=== PATIENT | male | born 1960 | race Two or more races ===

== ENCOUNTER 2019-12-11 11:38 | Day surgery (SDC) | payer OTHER ==
[2019-12-04 13:54] VITALS: BMI 29.0
[2019-12-11] MEDS ORDERED: CEFAZOLIN 2 GM in DEXTROSE 5%-WATER - 50 ML IVPB ONE (13:30)
[2019-12-11] MEDS ORDERED: VANCOMYCIN 1,000 MG in DEXTROSE 5%-WATER - 250 ML IVPB ONE (13:30)
[2019-12-11] MEDS ORDERED: PROPOFOL 20 ML ONE ×2 (13:55→14:46)
[2019-12-11] MEDS ORDERED: MIDAZOLAM HCL 2 MG/2 ML SINGLE DOSE VIAL ONE (13:55)
[2019-12-11] MEDS ORDERED: SUCCINYLCHOLINE CHLORIDE 200 MG/10 ML SYRINGE ONE (14:08)
[2019-12-11] MEDS ORDERED: ePHEDrine SULFATE 50 MG/1 ML AMPULE ONE (14:58)
--- NOTE | 2019-12-11 15:12 | OP ---
Operative Note - Note: Operative Date: 12/11/19 Pre-Operative Diagnosis: Right elbow bony hump, chronic pain Operation: Right elbow exostectomy (posterior) Post-Operative Diagnosis: Same as Pre-op Surgeon: Vlad Menezes Complaint Evaluation Officer: Francisco Potts Anesthesiologist/WOOL HAT FORMING MACHINE TENDER: Arturo Mckeon Anesthesia: General Estimated Blood Loss (mls): 10 Fluid Volume Replaced (mls): 500 Operative Report Dictated: Yes
--- NOTE | 2019-12-11 15:13 | SURG ---
Surgery Piano Tuner Note Piano Tuner: Francisco Potts PA-C Date of Service: 12/11/19 Diagnosis: Right elbow bony hump, chronic pain Procedure: Right elbow exostectomy (posterior) I was present for the entirety of the operative procedure. For further detail, please refer to operative report. Visit type - Case Type Case Type: Scheduled - New patient This patient is new to me today: Yes Date on this admission: 12/11/19
[2019-12-11] MEDS ORDERED: ONDANSETRON 4 MG/2 ML VIAL ONE (15:34)
[2019-12-11] MEDS ORDERED: oxyCODONE HCL 5 MG TABLET PO PRN (15:37)
[2019-12-11] MEDS ORDERED: ONDANSETRON 4 MG/2 ML VIAL IVPUSH PRN (15:37)
[2019-12-11] MEDS ORDERED: ACETAMINOPHEN 1000 MG/100 ML VIAL (NON FORMULARY) IVPB ONE (15:38)
[2019-12-11] MEDS ORDERED: LACTATED RINGERS SOLUTION 1,000 ML IV SCH (15:45)
[2019-12-11 16:29] VITALS: TEMP 97.8
[2019-12-11] MEDS ORDERED: oxyCODONE HCL 5 MG TABLET ONE (16:41)
--- NOTE | 2019-12-11 17:03 | OP ---
DATE OF OPERATION: 12/11/2019 SURGEON: Vlad Menezes MD. ENTRY LEVEL ACCOUNTANT: LIZ Trevizo. PREOPERATIVE DIAGNOSIS: Exostosis right olecranon. POSTOPERATIVE DIAGNOSIS: Exostosis right olecranon. OPERATION PERFORMED: Resection of exostosis (bone tumor), right olecranon. ANESTHESIA: General. ANTIBIOTICS GIVEN: Ancef 2 g given. OPERATION DETAILS: The patient was correctly identified, brought in operating room. Placed lateral decubitus position right side up. Right upper limb was prepped, free draped with Betadine scrub solution, wiped off with alcohol, DuraPrep applied. The elbow was flexed over the dorsal to give easy access to the olecranon. Midline incision utilized over the olecranon exposing the olecranon bursa. This was opened and dissected off the bone. A large exostosis was identified, as all the soft tissue was carefully dissected off this area. The actual skin was sutured on itself to prevent any retraction because of the precarious nature of this soft tissue healing bed and the difficulty of healing in this area. No retractors were utilized. Using an oscillating saw, the exostectomy and 3-cm resection of bone performed. This measured 3 x 3 cm accordingly. The bone appeared healthy, was sent to the laboratory for pathology. The bursa was debrided and the wound was closed with L[place]enbach number 2-0 sutures with interrupted sutures being performed. A light dressing was applied. Patient tolerated the procedure well, was extricated out of the operating room with no complications. Vlad Menezes MD [id number]
[2019-12-11 17:29] VITALS: BP 125/70
[2019-12-11 17:47] VITALS: PULSE 60
--- NOTE | 2019-12-16 17:18 | PATH ---
Surgical Pathology Report Patient Name: BRITTNEE NEGRETE Med. Rec. #: [id number] /Age/Gender: 1960 (Age: 59) / M Account: [id number] Location: [facility] Taken: 12/11/2019 Received: 12/11/2019 Reported: 12/16/2019 Physicians: Vlad Menezes M.D. Specimen(s) Received BONE RIGHT ELBOW Clinical History Effusion right elbow Final Diagnosis BONE, RIGHT ELBOW, EXCISION: PORTION OF MATURE BONE WITH FATTY MARROW FOCALLY CAPPED WITH HYALINE CARTILAGE. Comment: Consistent with exostosis. Suggest clinical correlation. Electronically Signed Juan Locke M.D. Gross Description Received in formalin labeled "bone right elbow," is a 2.0 x 2.0 x 0.3 cm owen-yellow portion of bone. Construction Specialist sections are submitted in one cassette, following decalcification. /12/14/2019 saudi12/14/2019
== END 2019-12-11 17:45 | disposition home or self-care (01) ==
LOC: FASU 11:38
PROVIDERS: ATTEND Orthopaedic Surgery Orthopaedic Surgery of the Spine
PROC: 0PBL0ZZ Excision of Left Ulna, Open Approach (ICD-10-PCS; principal; 2019-12-11 13:30)
DX: M25.722 Osteophyte, left elbow (principal)
CPT/HCPCS: 88304-TC; 88311-TC; 94760; J0131